=== PATIENT | male | born 1925 | race Caucasian/White ===

== ENCOUNTER → 2017-02-02 | Outpatient (CLI) | payer OTHER ==
[~2017-02-02] MED LIST: AMLO-110 PO; ASPI81TA28 PO; CIPR-255 PO; FERR1TAB13 PO; FINA5TAB PO; LISI-729 PO; NITR1CAP32 PO; OXYC-57 PO; PHEN-939 PO; PRLSR20 PO; TERAZOSIN PO
== END | disposition home or self-care (01) ==
LOC: C.LABSPEC 10:39
PROVIDERS: ATTEND Urology
DX: N39.0 Urinary tract infection, site not specified (principal); R39.12 Poor urinary stream

== ENCOUNTER → 2017-03-22 | Outpatient (CLI) | payer OTHER | END | disposition home or self-care (01) | LOC: C.LABSPEC 10:29 | PROVIDERS: ATTEND Urology | DX: N20.0 Calculus of kidney (principal); N39.0 Urinary tract infection, site not specified; N40.1 Benign prostatic hyperplasia with lower urinary tract symptoms; R39.12 Poor urinary stream ==

== ENCOUNTER 2017-04-01 12:58 | Day surgery (SDC) | payer OTHER, MEDICARE ==
--- NOTE | 2017-03-25 15:12 | PAT Medication Instructions ---
Service Date Mar 25, 2017. Current Home Medication List Amlodipine (Norvasc), 5 MG PO QAM Aspirin (Aspirin Ec), 81 MG PO QAM Ferrous Sulfate (Kp Ferrous Sulfate), 1 TAB PO QAM Finasteride (Proscar), 5 MG PO QAM Lisinopril (Prinivil), 5 MG PO QAM Nitrofurantoin Macrocrystals (Macrodantin), 100 MG PO HS Omeprazole (Prilosec), 20 MG PO QPM [Terazosin], 1 MG PO QPM Medication Instructions For Your Scheduled Surgery - Hold the following medications per your surgeon's instructions: Aspirin (Aspirin Ec), 81 MG PO QAM - Hold the following medications the morning of surgery: Lisinopril (Prinivil), 5 MG PO QAM Ferrous Sulfate (Kp Ferrous Sulfate), 1 TAB PO QAM - Take the following medications the morning of surgery with a sip of water: Finasteride (Proscar), 5 MG PO QAM Amlodipine (Norvasc), 5 MG PO QAM - Take the following medications as scheduled the night before surgery: Omeprazole (Prilosec), 20 MG PO QPM [Terazosin], 1 MG PO QPM Nitrofurantoin Macrocrystals (Macrodantin), 100 MG PO HS OTHERWISE NOTHING TO EAT OR DRINK AFTER MIDNIGHT If you have any questions please call us at [phone] or [phone] or [phone]
[2017-03-25 15:50] LABS: BASO % 1.1 %; BASO ABS # 0.06 K/uL (0-0.2); COMPLETE YES; EOS % 2.3 %; HEMATOCRIT 32.4 % (42-52); IG% 0.8 %; LYMPH % 35.7 %; LYMPH ABS # 1.87 K/uL (1.2-3.4); MEAN CELL VOLUME 95.6 fL (80-100); MEAN CORPUSCULAR HEMOGLOBIN 30.7 pg (25-34); MEAN CORPUSCULAR HGB CONC 32.1 g/dl (32-36); MEAN PLATELET VOLUME 9.5 fL (7.4-10.4); MONO % 13.4 %; NEUT % 46.7 %; PLATELET COUNT 341 K/uL (130-400); RED BLOOD COUNT 3.39 M/uL (4.7-6.1); WHITE BLOOD COUNT 5.24 K/uL (4.8-10.8)
[2017-03-25 15:57] LABS: BUN/CREATININE RATIO 20.1 (10-20); CALCIUM 9.5 mg/dl (8.5-10.1); CREATININE 0.8 mg/dl (0.60-1.40); POTASSIUM 3.9 mmol/L (3.5-5.1)
[~2017-04-01] VITALS: Ht 165.1 cm; Wt 56.3 kg
[~2017-04-01 12:58] MED LIST changes: -CIPR-255 PO; +CIPROFLOXACIN / D5W 400 MG IV SCH; +GENTAMICIN INJ 120 MG in DEXTROSE 5% 100ML 100 ML IV SCH; +LACTATED RINGER'S 1000ML 1,000 ML IV SCH; -OXYC-57 PO; -PHEN-939 PO
[2017-04-01 13:20] VITALS: BP 153/62; PULSE 78; TEMP 36.8; O2SAT 97; Ht 165.1 cm; Wt 56.3 kg
--- NOTE | 2017-04-01 13:44 | History & Physical Bridge Note ---
H&P Re-Evaluation Bridge Note: I have examined the patient, reviewed the History & Physical and in the interval since the performance of the History & Physical I have noted the following changes of clinical significance: No changes noted
--- NOTE | 2017-04-01 13:44 | DIAGNOSTIC IMAGING REPORT ---
KUB CLINICAL HISTORY: Right renal stone. Preoperative study. COMPARISON STUDY: CT of the abdomen and pelvis December 30, 2016 and K[facility] February 22, 2017. FINDINGS: A 1.6 x 0.8 cm calculus within the mid to upper pole of the right kidney is similar to exam of December 30, 2016. An adjacent 6 mm right renal calculus is unchanged. No ureteral calculi are present. Bowel gas pattern is normal. There are cholecystectomy clips. IMPRESSION: 1. No change in the 1.6 x 0.8 cm right renal calculus and an adjacent 6 mm right renal calculus. 2. No ureteral calculi. Electronically signed by: Nir Pickering M.D. 04/01/2017 1:42 PM Dictated Date/Time: 04/01/2017 1:40 PM
[2017-04-01] MEDS ORDERED: ATROPINE SULFATE 0.1 MG/ML 5ML SYR IV PRN (13:45)
[2017-04-01] MEDS ORDERED: FENTANYL CITRATE INJ 50 MCG/1 ML 2 ML VIAL IV PRN (13:45)
[2017-04-01] MEDS ORDERED: EpHEDrine SULFATE INJ 50 MG/ML AMP IV PRN (13:45)
[2017-04-01] MEDS ORDERED: FENTANYL CITRATE INJ 50 MCG/1 ML 2 ML VIAL ONE (14:31)
[2017-04-01] MEDS ORDERED: CONRAY 30% 150ML BOTTLE ONE (15:15)
[2017-04-01] MEDS ORDERED: LIDOCAINE HCL 2% 2 ML VIAL (20MG/ML) ONE (15:21)
[2017-04-01] MEDS ORDERED: PROPOFOL IV EMULSION 10 MG/ML 20 ML VIAL IV ONE (15:21)
[2017-04-01 15:35] VITALS: BP 170/75; PULSE 72; TEMP 36.7; O2SAT 99
[2017-04-01] MEDS ORDERED: OXYC-57 PO (15:35)
[2017-04-01] MEDS ORDERED: CIPR-255 PO (15:35)
[2017-04-01] MEDS ORDERED: PHEN-939 PO (15:35)
--- NOTE | 2017-04-01 15:38 | Discharge Instructions ---
Discharge Instructions Date of Service Apr 01, 2017. Admission Reason for Admission: Right Renal Stone Discharge Discharge Diagnosis / Problem: R renal stone s/p stent placement Discharge Goals Goal(s): Decrease discomfort, Improve disease control Activity Recommendations Activity Limitations: as noted below Lifting Limitations: no more than 25 pounds, gradually increase as tolerated Exercise/Sports Limitations: rest today, gradually increase as tolerated May Resume Sexual Activity: when tolerated Shower/Bathe: no limitations Driving or Machine Use: resume 1 day after discharge . Instructions / Follow-Up Instructions / Follow-Up Shockwave lithotripsy tomorrow as planned. Follow-up in office with [facility] Xray before appointment as scheduled Discharge Diet Recommended Diet: Regular Diet (good fluid intake) Procedures Procedures Performed: Cystoscopy, Right Retrograde Pyelogram;Right Ureteral Stent Placement Pending Studies Studies pending at discharge: no Medical Emergencies . Who to Call and When: Medical Emergencies: If at any time you feel your situation is an emergency, please call 911 immediately. . Non-Emergent Contact Non-Emergency issues call your: Urologist Call Non-Emergent contact if: you have a fever, temperature is above 101, your pain is not controlled, your pain is worsening, your pain is unusual for you, your pain is concerning you, you have any medication questions . . "Provider Documentation" section prepared by Erik Carrasquillo. . VTE Core Measure Inpt VTE Proph given/why not?: SCD's [place] Drug Monitoring Program Search Results: patient reviewed within database, see additional documentation (last Rx for narcotics in October 2016, chronic lorazepam)
--- NOTE | 2017-04-01 15:40 | [facility] Post Operative Brief Note ---
Immediate Operative Summary Operative Date Apr 01, 2017. Pre-Operative Diagnosis Right renal stone Post-Operative Diagnosis Same as preop Procedure(s) Performed Cystoscopy, Right Retrograde Pyelogram; Right Ureteral Stent Placement Surgeon Dr. Erik Carrasquillo Waiter/Waitress Third Class Surgeon(s) none Estimated Blood Loss 0 mL Findings Good stent position on fluoro, upper pole radioopaque stone pending ESWL tomorrow Specimens none, Per Surgeon Drains 6 fr multilength R ureteral stent Anesthesia MAC Complication(s) None Disposition Recovery Room / PACU
--- NOTE | 2017-04-01 15:41 | [facility] Operative Report ---
Operative Report Operative Date Apr 01, 2017. Pre-Operative Diagnosis Right renal stone Post-Operative Diagnosis Same as preop Procedure(s) Performed Cystoscopy, Right Retrograde Pyelogram; Right Ureteral Stent Placement Surgeon Dr. Erik Carrasquillo Cementer Surgeon(s) none Estimated Blood Loss 0 mL Findings Good stent position on fluoro Specimens none, Per Surgeon Drains 6 fr multilength R ureteral stent Anesthesia MAC Complication(s) None Disposition Recovery Room / PACU Indications Patient is an 89-year-old male found to have a 16 mm right renal stone on imaging. Seen his history of recurrent UTIs and size of the stone is being planned for shockwave lithotripsy. He is here today for stent placement prior to shockwave lithotripsy to avoid ureteral obstruction from stone fragments, Steinstrasse or urosepsis. Please see H&P for further details. Intravenous ciprofloxacin and gentamicin provided for antibiotic coverage. SCDs used for DVT prophylaxis. Description of Procedure Patient was properly identified and brought into the operative suite after identification of appropriate consent of the chart. Monitored anesthesia care with sedation was initiated and patient was prepped and draped in the standard fashion for this procedure. Full timeout procedure was followed. 22 Greek rigid cystoscope was passed into the bladder direct visualization. This demonstrated normal urethra, mildly obstructive prostate gland and somewhat trabeculated bladder with no intravesical lesions, papillary masses or calculi. Ureteral orifices were noted to be in the normal anatomic location and effluxing clear yellow urine bilaterally. [facility] imaging demonstrated the patient's right renal stone, radiopaque. Right ureteral orifice was cannulated using an open-ended catheter and gentle retrograde pyelography was performed. This demonstrated a normal ureter and renal pelvis and the stone was noted to be present within an upper pole calyx, somewhat dilated. Sensor tip wire was advanced to the right renal pelvis followed by a 6 Greek multilength ureteral stent with redundant loops present both within the right renal pelvis within the bladder. Hydronephrotic drip was appreciated. Bladder was drained cystoscope was removed. Anesthesia was reversed and patient was transferred to the recovery room in stable condition. Follow-up care: Patient will be discharged home today with a prescription for ciprofloxacin, Pyridium and Percocet. Care was discussed with the patient's per the patient's preference. Appointment for shockwave lithotripsy tomorrow was confirmed as well as his postoperative appointment with K[facility] in the office. Patient is instructed to contact our office with any difficulties in the postoperative period. I attest to the content of the Intraoperative Record and any orders documented therein. Any exceptions are noted below.
[2017-04-01] MEDS ORDERED: OXYCODONE/ACETAMINOPHEN 5-325 TAB PO PRN (15:45)
[2017-04-01] MEDS ORDERED: PHENAZOPYRIDINE HCL 100 MG TAB PO PRN (15:45)
--- NOTE | 2017-04-01 15:55 | Anesthesiology Progress Note ---
Anesthesia Post Op Note Date & Time Apr 01, 2017 at 15:55 Vital Signs Pain Intensity: 0 Vital Signs Past 12 Hours Date Time Temp Pulse Resp B/P (MAP) Pulse Ox O2 Delivery O2 Flow Rate FiO2 04/01/17 15:35 36.7 72 16 170/75 99 Oxymask 6 04/01/17 13:20 36.8 78 18 153/62 (92) 97 Room Air Notes Mental Status: alert / awake / arousable, participated in evaluation Pt Amnestic to Procedure: Yes Nausea / Vomiting: adequately controlled Pain: adequately controlled Airway Patency, RR, SpO2: stable & adequate BP & HR: stable & adequate Hydration State: stable & adequate Anesthetic Complications: no major complications apparent
--- NOTE | 2017-04-01 16:06 | DIAGNOSTIC IMAGING REPORT ---
RETROGRADE INCLUDES KUB HISTORY: 89 years-old Male RT RETROGRADE AND STENT PLACEMENT status post placement of a right ureteral stent COMPARISON: [facility] 04/01/2017 TECHNIQUE: 3 spot fluoroscopic images of the right upper abdomen were obtained with retrograde urethrogram and stent placement. 31.5 seconds fluoroscopy time was utilized. FINDINGS: First image demonstrates contrast opacification of a dilated right ureter, pelvis and renal collecting system with an apparent filling defect with ill-defined margins present within the region of the proximal right ureter which may reflect air, a stone or debris. Surgical clips are seen in the region of the superior pole right kidney. Filling defect involving a superior pole calyx on the right likely correlates with previously noted 1.6 cm calculus. Second image demonstrates placement of a guidewire into the right renal pelvis and the third image demonstrates placement of a right ureteral stent within the renal pelvis with only the proximal portion imaged. IMPRESSION: Fluoroscopic assistance as above. Please see procedural report for further details. The above report was generated using voice recognition software. It may contain grammatical, syntax or spelling errors. Electronically signed by: Familia Livingston M.D. 04/01/2017 4:05 PM Dictated Date/Time: 04/01/2017 4:02 PM
[2017-04-01 16:15] VITALS: BP 156/71; PULSE 70; TEMP 36.7; O2SAT 95
== END 2017-04-01 16:25 | disposition home or self-care (01) ==
LOC: C.ACU 12:58
PROVIDERS: ATTEND Urology
DX: N20.0 Calculus of kidney (principal); N40.1 Benign prostatic hyperplasia with lower urinary tract symptoms; N13.8 Other obstructive and reflux uropathy; I10 Essential (primary) hypertension; Z79.899 Other long term (current) drug therapy

== ENCOUNTER → 2017-04-02 | Day surgery (SDC) | payer OTHER, MEDICARE ==
[2017-03-25 15:16] VITALS: Ht 165.1 cm; Wt 56.3 kg
[~2017-04-02] VITALS: Ht 165.1 cm; Wt 56.3 kg
[~2017-04-02] MED LIST changes: -ASPI81TA28 PO; +ATROPINE SULFATE 0.1 MG/ML 5ML SYR IV PRN; +CIPR-255 PO; -CIPROFLOXACIN / D5W 400 MG IV SCH; +CIPROFLOXACIN 400MG / D5W IV SCH; +DEXAMETHASONE SOD INJ 4 MG/ML VIAL ONE; +EpHEDrine SULFATE INJ 50 MG/ML AMP IV PRN; +FENTANYL CITRATE INJ 50 MCG/1 ML 2 ML VIAL IV PRN; +FENTANYL CITRATE INJ 50 MCG/1 ML 2 ML VIAL ONE; -GENTAMICIN INJ 120 MG in DEXTROSE 5% 100ML 100 ML IV SCH; +LIDOCAINE HCL 2% 2 ML VIAL (20MG/ML) ONE; +ONDANSETRON INJ 2 MG/ML 2 ML VIAL IV PRN; +ONDANSETRON INJ 2 MG/ML 2 ML VIAL ONE; +OXYC-57 PO; +PHEN-939 PO; +PROPOFOL IV EMULSION 10 MG/ML 20 ML VIAL IV ONE
--- NOTE | 2017-04-02 08:41 | [facility] Post Operative Brief Note ---
Immediate Operative Summary Operative Date Apr 02, 2017. Pre-Operative Diagnosis Right Renal Calculi Post-Operative Diagnosis Same Procedure(s) Performed Right Extracorporeal Shock Wave Lithotripsy Surgeon Dr. Galeas Corporate Law Specialist Surgeon(s) None Estimated Blood Loss 0 Findings r stone appeared to fragment Specimens 0 Disposition Recovery Room / PACU
--- NOTE | 2017-04-02 08:49 | Discharge Instructions-SurgCtr ---
Discharge Instructions Date of Service Apr 02, 2017. Visit Reason for Visit: Stones Discharge Discharge Diagnosis / Problem: post op r eswl Discharge Goals Goal(s): Decrease discomfort, Improve disease control Medications Stopped Medications Name(s): iron Activity Recommendations Activity Limitations: resume your previous activity Anesthesia . Post Anesthesia Instructions: If you have had General Anesthesia or IV Sedation: * Do not drive today. * Resume driving when surgeon permits. * Do not make important decisions or sign legal documents today. * Call surgeon for: 1. Temperature elevations greater than 101 degrees F. 2. Uncontrollable pain. 3. Excessive bleeding. 4. Persistent nausea and vomiting. 5. Medication intolerance (nausea, vomiting or rash). * For nausea and vomiting use only clear liquids such as: tea, soda, bouillon until nausea subsides, then gradually increase diet as tolerated. * If you have any concerns or questions, call your surgeon's office. If physician is unavailable and it is an emergency, call 911 or go to the nearest emergency room. . Diet Recommendations Home Diet: resume previous diet Procedures Procedures Performed: Right Extracorporeal Shock Wave Lithotripsy Pending Studies Studies pending at discharge: no Medical Emergencies . Who to Call and When: Medical Emergencies: If at any time you feel your situation is an emergency, please call 911 immediately. . Non-Emergent Contact Non-Emergency issues call your: Urologist Call Non-Emergent contact if: temperature is above 101 . . "Provider Documentation" section prepared by Deejay Galeas. .
[2017-04-02 09:27] VITALS: TEMP 37.3
--- NOTE | 2017-04-02 09:46 | Anesthesia Progress Nt - [facility] ---
Anesthesia Post Op Note Date & Time Apr 02, 2017 at 09:46 Vital Signs Pain Intensity: 0 Vital Signs Past 12 Hours Date Time Temp Pulse Resp B/P (MAP) Pulse Ox O2 Delivery O2 Flow Rate FiO2 04/02/17 09:27 37.3 73 16 164/64 (97) 97 Room Air 04/02/17 09:19 68 17 95 04/02/17 09:19 65 17 04/02/17 09:18 37.4 67 14 156/58 94 Room Air 04/02/17 09:16 163/72 04/02/17 09:14 72 20 100 04/02/17 09:14 68 20 04/02/17 09:11 147/66 04/02/17 09:09 57 14 99 04/02/17 09:09 59 14 04/02/17 09:08 62 13 100 04/02/17 09:08 61 13 04/02/17 09:06 156/61 04/02/17 09:03 64 13 04/02/17 09:03 65 13 99 04/02/17 09:01 143/61 04/02/17 08:58 60 13 04/02/17 08:58 63 13 99 04/02/17 08:56 149/58 04/02/17 08:53 62 18 04/02/17 08:53 61 18 99 04/02/17 08:51 145/69 04/02/17 08:49 141/58 04/02/17 08:48 70 98 04/02/17 08:48 70 04/02/17 08:48 36.9 67 18 141/58 98 Diffusion Mask 6 04/02/17 06:41 36.9 70 16 130/52 (78) 96 Room Air Notes Mental Status: alert / awake / arousable, participated in evaluation Pt Amnestic to Procedure: Yes Nausea / Vomiting: adequately controlled Pain: adequately controlled Airway Patency, RR, SpO2: stable & adequate BP & HR: stable & adequate Hydration State: stable & adequate Anesthetic Complications: no major complications apparent
[2017-04-02 09:53] VITALS: BP 148/69; PULSE 71; O2SAT 97
--- NOTE | 2017-04-02 15:38 | OPERATIVE REPORT ---
DATE OF OPERATION: 04/02/2017 PREOPERATIVE DIAGNOSIS: Right renal stone. POSTOPERATIVE DIAGNOSIS: Same. SURGEON: Dr. Galeas. ANESTHESIA: General. INDICATIONS: The patient is an 89-year-old male who had a stent placed for a 16 x 8 mm renal stone yesterday and presents today for definitive treatment. He was given Venodyne stockings. He had antibiotics given and he received 2500 shocks, mostly at level 4, but some at level 5. At the end of the procedure, he was transferred to the recovery room in stable condition. I attest to the content of the Intraoperative Record and any orders documented therein. Any exception s are noted below.
== END | disposition home or self-care (01) ==
LOC: X.SURG 06:02
PROVIDERS: ATTEND Urology
DX: N20.0 Calculus of kidney (principal); N40.1 Benign prostatic hyperplasia with lower urinary tract symptoms; N13.8 Other obstructive and reflux uropathy; Z87.440 Personal history of urinary (tract) infections; Z90.49 Acquired absence of other specified parts of digestive tract

== ENCOUNTER → 2017-04-14 | Outpatient (CLI) | payer OTHER, MEDICARE ==
[~2017-04-14] MED LIST changes: -ATROPINE SULFATE 0.1 MG/ML 5ML SYR IV PRN; -CIPROFLOXACIN 400MG / D5W IV SCH; -DEXAMETHASONE SOD INJ 4 MG/ML VIAL ONE; -EpHEDrine SULFATE INJ 50 MG/ML AMP IV PRN; -FENTANYL CITRATE INJ 50 MCG/1 ML 2 ML VIAL IV PRN; -FENTANYL CITRATE INJ 50 MCG/1 ML 2 ML VIAL ONE; -LACTATED RINGER'S 1000ML 1,000 ML IV SCH; -LIDOCAINE HCL 2% 2 ML VIAL (20MG/ML) ONE; -ONDANSETRON INJ 2 MG/ML 2 ML VIAL IV PRN; -ONDANSETRON INJ 2 MG/ML 2 ML VIAL ONE; -PHEN-939 PO; -PROPOFOL IV EMULSION 10 MG/ML 20 ML VIAL IV ONE
== END | disposition home or self-care (01) ==
LOC: C.LABSPEC 10:41
PROVIDERS: ATTEND Urology
DX: N20.0 Calculus of kidney (principal)

== ENCOUNTER → 2017-04-14 | Outpatient (CLI) | payer OTHER, MEDICARE ==
--- NOTE | 2017-04-14 11:36 | DIAGNOSTIC IMAGING REPORT ---
[facility] HISTORY: Follow-up study. Placement of a right ureteral stent N20.0 [id number] COMPARISON: Retrograde cystourethrogram and KUB 04/01/2017. FINDINGS: The bowel gas pattern is non-obstructive. There is no organomegaly. Right ureteral stent appears to be in satisfactory positioning. Right-sided nephrolithiasis without large 1.6 cm calculus identified on prior study. There is a 5 mm calculus adjacent to the proximal right ureteral stent just inferior to the transverse process L3. No definite additional right-sided ureteral calculi identified.. No pneumoperitoneum or pneumatosis. Surgical clips of the right upper abdomen noted. No fracture. Multilevel degenerative changes of the spine as well as within the hips. IMPRESSION: 1. 5 mm calculus is noted adjacent to the proximal portion of the right ureteral stent in the region of the proximal ureter. 2. Right-sided nephrolithiasis. Electronically signed by: Familia Livingston M.D. 04/14/2017 11:34 AM Dictated Date/Time: 04/14/2017 11:32 AM
== END | disposition home or self-care (01) ==
LOC: C.RAD 11:14
PROVIDERS: ATTEND Urology
DX: N20.0 Calculus of kidney (principal); N20.1 Calculus of ureter; Z96.0 Presence of urogenital implants